=== PATIENT | male | born 1965 ===

== ENCOUNTER 2017-01-31 10:10 | Emergency (ER) | payer MEDICAID ==
[2017-01-31 10:54] VITALS: BMI 20.9
--- NOTE | 2017-01-31 10:58 | C.PDOC ---
History Of Present Illness A 51 year old male presents to the emergency room requesting Heroine and ETOH detox. Patient is currently asymptomatic and denies any fever, chest pain, shortness of breath, or any other physical complaints. REQUESTING HEROIN AND ETOH DETOX. ASYMPT EXAM NEG Time Seen by Provider: 01/31/17 10:53 Chief Complaint (Nursing): Substance Abuse History Per: Patient History/Exam Limitations: no limitations Onset/Duration Of Symptoms: Hrs Current Symptoms Are (Timing): Still Present Suicide/Self Injury Attempted (Context): None Modifying Factor(s): Alcohol, Other (Heroine) Severity: Mild Recent travel outside of the [place]: No Past Medical History Reviewed: Historical Data, Nursing Documentation, Vital Signs Vital Signs: Last Vital Signs Temp 97.8 F 01/31/17 10:54 Pulse 68 01/31/17 10:54 Resp 20 01/31/17 10:54 BP 128/81 01/31/17 10:54 Pulse Ox 100 01/31/17 10:54 - Medical History PMH: Denies: Diabetes, Hepatitis, HIV, HTN, Chronic Kidney Disease, Seizures, Sexually Transmitted Disease - [facility] Procedures DETOXIFICATION SERVICES FOR SUBSTANCE ABUSE TREATMENT (10/13/16) GROUP CLAM DREDGER FOR SUBSTANCE ABUSE TREATMENT, PSYCHOEDUCATION (10/13/16) Family History: States: Unknown Family Hx - Social History Hx Alcohol Use: Yes Hx Substance Use: Yes - Immunization History Hx Tetanus Toxoid Vaccination: Yes Hx Influenza Vaccination: Yes Hx Pneumococcal Vaccination: No Review Of Systems Except As Marked, All Systems Reviewed And Found Negative. Constitutional: Positive for: Other (ETOH and Heroine Detox). Negative for: Fever Cardiovascular: Negative for: Chest Pain Respiratory: Negative for: Shortness of Breath Physical Exam - Physical Exam Appears: Well, Non-toxic, No Acute Distress Skin: Normal Color, Warm, Dry Head: Atraumatic, Normacephalic Eye(s): bilateral: Normal Inspection Neck: Normal ROM, Supple Cardiovascular: Rhythm Regular Respiratory: Normal Breath Sounds, No Rales, No Rhonchi, No Wheezing Gastrointestinal/Abdominal: Soft, No Tenderness Extremity: Normal ROM, No Tenderness Neurological/Psych: Oriented x3, Normal Speech, Normal Cognition ED Course And Treatment - Physician Consult Information Time Consulting Physician Contacted: 11:02 Outcome Of Conversation: D/W CRISIS BRAD, NO DETOX BEDS AVAIL. ALT DETOX RESOURCES GIVEN Disposition Counseled Patient/Family Regarding: Diagnosis, Need For Followup - Disposition Referrals: Clinical Laboratory Director Service [Outside] BESSIE,DETOX [Other] Disposition: HOME/ ROUTINE Disposition Time: 10:54 Condition: GOOD Instructions: Polysubstance Abuse (ED) - Clinical Impression Clinical Impression: Polysubstance abuse - Scribe Statement The provider has reviewed the documentation as recorded by the Feleciaibblanca Rich Provider Scribe Attestation: All medical record entries made by the Feleciaibe were at my direction and personally dictated by me. I have reviewed the chart and agree that the record accurately reflects my personal performance of the history, physical exam, medical decision making, and the department course for this patient. I have also personally directed, reviewed, and agree with the discharge instructions and disposition.
[2017-01-31 11:02] VITALS: BP 128/81; PULSE 68; RESP 20; TEMP 97.8; O2SAT 100
== END 2017-01-31 11:07 | disposition home or self-care (01) ==
LOC: C.ER 10:10
DX: F19.10 Other psychoactive substance abuse, uncomplicated (principal)

== ENCOUNTER 2018-12-03 12:21 | Inpatient (IN) | payer MEDICAID ==
[2018-12-03 12:22] VITALS: BMI 20.9
[2018-12-03 16:44] LABS: BASO % 0.3 % (0.0-2.0); EOS # 0.1 K/uL (0.0-0.7); EOS % 0.6 % (0.0-4.0); LYMPH # 1.8 K/uL (1.0-4.3); LYMPH % 16.9 % (20.0-40.0); MEAN CORPUSCULAR HEMOGLOBIN 30.9 pg (27.0-31.0); MEAN CORPUSCULAR HGB CONC 33.4 g/dL (33.0-37.0); MEAN PLATELET VOLUME 9.4 fL (7.2-11.7); MONO # 1.1 K/uL (0.0-0.8); MONO % 9.6 % (0.0-10.0); NEUT # 7.9 K/uL (1.8-7.0); NEUT % 72.6 % (50.0-75.0); RBC 4.19 Mil/uL (4.40-5.90); RED CELL DISTRIBUTION WIDTH 12.8 % (11.5-14.5); WHITE BLOOD COUNT 10.9 K/uL (4.8-10.8)
[2018-12-03 16:48] LABS: MEAN CELL VOLUME 92.7 fL (80.0-94.0)
[2018-12-03 17:00] LABS: ALB/GLOB RATIO 1.3 (1.0-2.1); ALT/SGPT 24 U/L (21-72); AST/SGOT 24 U/L (17-59); CALCIUM 8.7 mg/dl (8.6-10.4); GFR NON-AFRICAN AMERICAN > 60
--- NOTE | 2018-12-03 17:13 | C.PDOC ---
History Of Present Illness 53 y/o male presents to the ER requesting detox from heroin. Patient states that he snorts heroin and his last use was in the morning today. Patient is complaining of nausea and body aches. He also states that he has mild non-productive cough which has been present for the past several days. Denies having suicidal ideation, homicidal ideation, fever, chills, vomiting, and abdominal pain. Time Seen by Provider: 12/03/18 16:21 Chief Complaint (Nursing): Substance Abuse History Per: Patient History/Exam Limitations: no limitations Onset/Duration Of Symptoms: Days Current Symptoms Are (Timing): Still Present Severity: Moderate Past Medical History Reviewed: Historical Data, Nursing Documentation, Vital Signs Vital Signs: Last Vital Signs Temp 98.0 F 12/03/18 13:31 Pulse 70 12/03/18 13:31 Resp 20 12/03/18 13:31 BP 112/70 12/03/18 13:31 Pulse Ox 97 12/03/18 13:31 - Medical History PMH: Denies: Diabetes (Patient denied.), Hepatitis (Patient denied.), HIV (Patient denied.), HTN (Patient denied.), Chronic Kidney Disease, Seizures (Patient denied.), Sexually Transmitted Disease (Patient denied.) Surgical History: No Surg Hx - [facility] Procedures DETOXIFICATION SERVICES FOR SUBSTANCE ABUSE TREATMENT (10/13/16) GROUP FOSTER CARE CASE MANAGER FOR SUBSTANCE ABUSE TREATMENT, PSYCHOEDUCATION (10/13/16) Family History: States: No Known Family Hx - Social History Hx Alcohol Use: Yes Hx Substance Use: Yes - Immunization History Hx Tetanus Toxoid Vaccination: Yes Hx Influenza Vaccination: Yes Hx Pneumococcal Vaccination: Yes Review Of Systems Except As Marked, All Systems Reviewed And Found Negative. Constitutional: Positive for: Malaise. Negative for: Fever, Chills Respiratory: Positive for: Cough Gastrointestinal: Positive for: Nausea. Negative for: Vomiting, Abdominal Pain Physical Exam - Physical Exam Appears: No Acute Distress Skin: Normal Color, Warm, Dry Head: Atraumatic, Normacephalic Eye(s): bilateral: Normal Inspection Nose: Normal Oral Mucosa: Moist Throat: Normal, No Erythema, No Exudate Neck: Supple Chest: Symmetrical Cardiovascular: Rhythm Regular Respiratory: Normal Breath Sounds, No Rales, No Rhonchi Gastrointestinal/Abdominal: Soft, No Tenderness, No Guarding, No Rebound Neurological/Psych: Oriented x3, Normal Speech ED Course And Treatment - Laboratory Results Result Diagrams: 12/03/18 16:38 12/03/18 16:38 O2 Sat by Pulse Oximetry: 97 (RA) Pulse Ox Interpretation: Normal - Other Rad CXR X-Ray: Viewed By Me, Read By Radiologist Interpretation: Accession No. : [id number]. Patient Name / ID : DAIANA MAURICIO / [id number]. Exam Date : 12/03/2018 17:26:44 ( Approved ). Study Comment : Sex / Age : M / 53Y. Creator : Tim Cruz MD. Dictator : Tim Colón MD. Personnel Consultant : Computer Installation Engineer : Tim Cruz MD. Approver2 : Report Date : 12/03/2018 18:23:01. My Comment : . Date of service: 12/03/2018. HISTORY: COUGH, MEDICAL CLEARANCE. COMPARISON: No prior. TECHNIQUE: Chest PA and lateral. FINDINGS: LUNGS: No active pulmonary disease. Multiple small less than 5 mm calcified granulomas. PLEURA: No significant pleural effusion identified. No pneumothorax apparent. CARDIOVASCULAR: No aortic atherosclerotic calcification present. Normal cardiac size. No pulmonary vascular congestion. OSSEOUS STRUCTURES: No significant abnormalities. VISUALIZED UPPER ABDOMEN: Normal. OTHER FINDINGS: None. IMPRESSION: No active disease. Progress Note: Blood work, UA, UDS, CXR ordered and reviewed. Patient given PO Zofran and Motrin. UA shows + leuk and WBCS, however patient denies dysuria/hematuira, penile dishcarge, etc. Do not recommend antibiotics. 6:00pm- Patient medically cleared. Patient accepted Dr. Higgins for opiate detox admission. Disposition - Disposition - Scribe Statement The provider has reviewed the documentation as recorded by the Scribe Corrine Rice Provider Attestation: All medical record entries made by the Scribe were at my direction and personally dictated by me. I have reviewed the chart and agree that the record accurately reflects my personal performance of the history, physical exam, medical decision making, and the department course for this patient. I have also personally directed, reviewed, and agree with the discharge instructions and disposition.
[2018-12-03 17:14] LABS: SQUAMOUS EPITHIAL < 1 /hpf (0-5); URINE BACTERIA FEW (<OCC); URINE BILIRUBIN NEGATIVE (NEGATIVE); URINE BLOOD 1+ (NEGATIVE); URINE CLARITY Hazy (Clear); URINE COLOR Yellow (YELLOW); URINE GLUCOSE (UA) NORMAL (Normal); URINE LEUKOCYTE ESTERASE 3+ Leu/uL (Negative); URINE PROTEIN NEGATIVE (NEGATIVE)
[2018-12-03 17:14] LABS: BLOOD UREA NITROGEN 12 mg/dL (9-20)
[2018-12-03 17:25] LABS: BARBITURATES, UR NEGATIVE (NEGATIVE); BENZODIAZEPINES, UR NEGATIVE (NEGATIVE); PHENCYCLIDINE, UR NEGATIVE (NEGATIVE)
[2018-12-03 17:28] LABS: OPIATES, UR POSITIVE (NEGATIVE)
--- NOTE | 2018-12-03 18:26 | RAD ---
Date of service: 12/03/2018 HISTORY: COUGH, MEDICAL CLEARANCE COMPARISON: No prior. TECHNIQUE: Chest PA and lateral FINDINGS: LUNGS: No active pulmonary disease. Multiple small less than 5 mm calcified granulomas. PLEURA: No significant pleural effusion identified. No pneumothorax apparent. CARDIOVASCULAR: No aortic atherosclerotic calcification present. Normal cardiac size. No pulmonary vascular congestion. OSSEOUS STRUCTURES: No significant abnormalities. VISUALIZED UPPER ABDOMEN: Normal. OTHER FINDINGS: None. IMPRESSION: No active disease.
--- NOTE | 2018-12-03 18:33 | PCM.BM ---
<Leyla Esquivel - Last Filed: 12/03/18 18:31> Treatment Plan Problems - Problems identified on initial assessmt denial Date Initiated: 12/03/18 Time Initiated: 18:31 Assessment reference: NA Status: Active low modivation Date Initiated: 12/03/18 Time Initiated: 18:33 Assessment reference: NA Status: Active defensive coping Date Initiated: 12/03/18 Time Initiated: 18:33 Assessment reference: NA Status: Active Treatment assets and liabiliti Patient Assests: ADL independent, physically healthy, good support system, cognitively intact Patient Liabilities: substance abuse - Milieu Protocol Maintain good personal hygiene: daily Encourage regular showers, daily Remind patient to perform daily oral care, daily Assist patient to perform ADL's Maintain personal safety: every shift Educate patient to report safety concerns to staff, every shift Monitor environment for contraband/sharps Medication safety: Monitor for expected outcome, potential side effects: every shift, Assess barriers to learning: every shift, Assess readiness for medication education: every shift <Enma Hand - Last Filed: 12/05/18 11:49> Family Contact Family involvement: Famliy/SO not involved - Goals for Treatment Patient goals for treatment: Complete detox and apply for long-term inpatient rehab. Discharge/Continuing Care - Education Needs Education Needs: Patient Medication, Patient Diagnosis/Disease Process, Patient Coping Skills, Patient Anger Management skills, Patient Placement options, Patient Community resources - Discharge Discharge Criteria: Ability to care for self, No longer exhibiting s/s of withdrawal, Reduction of target symptoms Discharge to:: Substance Abuse Rehab - Treatment Team Participation Patient/Family/SO Statement: 12/05/18 11:50 "I'd like to try the [employer]." Discussed with Family/SO: No Was Patient/Family/SO present at Treatment Team Meeting: Yes <Jad Higgins - Last Filed: 12/09/18 17:29> - Diagnosis (1) Opiate dependence Status: Acute Interventions: 12/04/18 17:28 * Assess 7x/week regarding severity of withdrawal * Educate regarding risks, benefits, side effects and alternatives of medications * Use Motivational Interviewing for abstinence * Use CBT for relapse prevention * Medication management for withdrawal symptoms * Encourage medication assisted treatment *
[2018-12-03] MEDS ORDERED: Buprenorphine Hydrochloride 2 mg SL ONE ×2 (19:12→20:12)
[2018-12-03] MEDS ORDERED: Aluminum Hydroxide/Magnesium Hydroxide Susp (30 mL) PO PRN (23:59)
[2018-12-04] MEDS: Buprenorphine Hydrochloride 2 mg SL SCH (09:57)
[2018-12-04] MEDS ORDERED: Benzocaine/Menthol (Cepacol) Lozenge MT PRN (10:19)
--- NOTE | 2018-12-04 12:40 | PCM.PSYCH ---
Initial Psychiatric Evaluation - Initial Psychiatric Evaluation Type of Admission: Voluntary Legal Status: Capacity Chief Complaint (in patient's own words): "I want to stop doing heroin for my family" History of Present Illness and Precipitating Events: Patient is a 53-year-old, male who is single, unemployed, lives with his mom, and has 4 children, all adults. He presents to [facility] ER requesting opioid detox. Patient states that he is tired of doing drugs and wants to be clean. He reports that his brother from an overdose 6 months ago which put him in a bad place mentally but made him realize he has to quit for his family. He admits to using 8-10 bags of heroin, intranasally, for the past 9 months. He has been using heroin since he was 29 years old with his longest sobriety being 4 years that he attributes to being busy working. This is his fourth time in detox (twice to [facility], second time to [facility]). He denies ever going to rehab or taking any maintenance drugs. Patient denies taking pills, drinking alcohol, using cocaine, smoking marijuana. Patient states that the reason why he gets high is because he feels bored. He denies any suicidal or homicidal ideation, hallucinations, and paranoia. Past Psychiatric History: depression, anxiety. Admitted to inpatient psych when 11 years old for being emotionally disturbed. Familial Psych History: brother from heroin overdose 6 months ago. Grandmother and father were alcoholics. PMHx/PSHx: none Meds: none Current Medications: Active Medications Generic Name Dose Route Start Last Admin Trade Name Freq PRN Reason Stop Dose Admin Al Hydrox/Mg Hydrox/Simethicone 30 ml 12/03/18 23:59 Maalox 30 Ml PO TID PRN Indigestion / Heartburn Benzocaine/Menthol 1 margarita 12/04/18 10:19 Cepacol Sore Throat MT Q4H PRN Sore Throat Buprenorphine HCl 8 mg 12/04/18 10:00 12/04/18 09:57 Subutex SL 12/08/18 09:59 8 mg DAILY ILIANA Administration Taper Clonidine HCl 0.1 mg 12/03/18 23:58 Catapres PO Q4 PRN COWS Score More or Equal to 5 Dicyclomine HCl 10 mg 12/04/18 00:00 Bentyl PO Q6H PRN spasms Guaifenesin 200 mg 12/04/18 10:19 Robitussin PO Q4H PRN Cough and congestion Hydroxyzine HCl 50 mg 12/04/18 00:00 Atarax PO Q6H PRN Anxiety Ibuprofen 600 mg 12/04/18 00:00 Motrin Tab PO Q6H PRN Pain, moderate (4-7) Loperamide HCl 2 mg 12/03/18 23:59 Imodium PO Q8 PRN Diarrhea Ondansetron HCl 4 mg 12/03/18 23:59 Zofran Tab PO Q8 PRN Nausea/Vomiting Trazodone HCl 50 mg 12/03/18 20:39 12/03/18 22:07 Desyrel PO 50 mg HS PRN Administration insomnia Past Psychiatric History - Past Psychiatric History Previous Treatment History: Intensive Outpatient Pertinent Medical Hx (Current Medical&Sleep Prob, Allergies): Allergies Allergy/AdvReac Type Severity Reaction Status Date / Time No Known Allergies Allergy Verified 12/03/18 13:32 No Known Home Med 10/13/16 Review of Systems - Psychiatric Psychiatric: Abnormal Sleep Pattern, Anxiety, Behavioral Changes, Difficulty Concentrating. absent: Hallucinations, Homicidal Ideation, Suicidal Ideation, Visual Hallucinations Mental Status Examination - Personal Presentation Personal Presentation: Looks stated age - Affect Affect: Broad - Motor Activity Motor Activity: Calm - Reliability in Providing Information Reliability in Providing Information: Good - Speech Speech: Organized - Mood Mood: Neutral - Formal Thought Process Formal Thought Process: No Impairment - Obsessions/Compulsions Obsessions: No Compulsions: No - Cognitive Functions Orientation: Person, Place, Situation, Time Sensorium: Alert Attention/Concentration: Attentive Abstract Thinking: [place] Estimate of Intelligence: Average Judgement: Intact, as evidence by: Insight regarding need for hospitalization Memory: Recent intact, as evidence by: Ability to recall events of the day, Remote intact, as evidenced by: Ability to recall historical events - Risk Risk: Withdrawal, Diminished functioning - Strength & Assets Inventory Strength & Assets Inventory: Family support, Employment history, Cooperative - Limitations Limitations: Other DSM 5 DX - DSM 5 DSM 5 Diagnosis: Opioid withdrawal opioid use disorder- severe Depressive d/o - unspecified - Recommended/Plan of Treatment Treatment Recommendations and Plan of Treatment: Taper with subutex Remeron for depressive sxs and insomnia Gabapentin for augmentation if needed As needed medications All risks, benefits and alternatives of the meds discussed, and the pt agreed and understood. Attend groups and activities Supportive therapy and psychoeducation [facility] for abstinence CBT for relapse prevention Encourage MAT Refer to rehab or IOP, and self-help groups Teach healthy lifestyle methods, i.e. diet, exercise, meditation Smoking cessation with [facility] Nicotine patch if needed 33 min Projected ELOS: 4-5 days Prognosis: good with treatment - Smoking Cessation Smoking Cessation Initiated: Yes
[2018-12-05] MEDS: guaiFENesin 200 mg/10 ml Syrup UD PO PRN (09:26)
[2018-12-05] MEDS: Buprenorphine Hydrochloride 2 mg SL SCH (09:27)
--- NOTE | 2018-12-05 13:45 | PCM.PYCHPN ---
Psychiatric Progress Note - Psychiatric Progress Note Patient seen today, length of contact: 16 min Patient Chief Complaint: "Not well" Problems Identified/Issues Discussed: The pt is seen, chart reviewed, case is discussed with staff. The pt is compliant with medications and reports no side-effects. Symptoms are improving but needs more time to stabilize and to avoid relapse. Pt attends groups and activities. Support given, psycho-education provided. After care discussed. Medication Change: Yes (detox changes daily) Medical Record Reviewed: Yes Mental Status Examination - Cognitive Function Orientation: Person, Place, Situation, Time Memory: Intact Attention: WNL Concentration: Poor Association: WNL Fund of Knowledge: WNL - Mood Mood: Neutral - Affect Affect: Broad - Speech Speech: Appropriate - Formal Thought Process Formal Thought Process: No Impairment - Suicidal Ideation Suicidal Ideation: No - Homicidal Ideation Homicidal Ideation: No Goal/Treatment Plan - Goal/Treatment Plan Need for Continued Stay: Discharge may exacerbated symptoms, Severe functional impairment Progress Toward Problem(s) and Goals/Treatment Plan: Taper with subutex Remeron for depressive sxs and insomnia Gabapentin for augmentation if needed As needed medications All risks, benefits and alternatives of the meds discussed, and the pt agreed and understood. Attend groups and activities Supportive therapy and psychoeducation [place] for abstinence CBT for relapse prevention Encourage MAT Refer to rehab or IOP, and self-help groups Teach healthy lifestyle methods, i.e. diet, exercise, meditation Smoking cessation with [place] Nicotine patch if needed
[2018-12-06 06:29] VITALS: RESP 18
[2018-12-06] MEDS: guaiFENesin 200 mg/10 ml Syrup UD PO PRN (09:17)
[2018-12-06] MEDS: Buprenorphine Hydrochloride 2 mg SL SCH (09:17)
--- NOTE | 2018-12-06 11:51 | PCM.PYCHPN ---
Psychiatric Progress Note - Psychiatric Progress Note Patient seen today, length of contact: 17 min Patient Chief Complaint: " i have a headache" Problems Identified/Issues Discussed: The pt is seen, chart reviewed, case discussed with staff. Patient complains of a headache and more bone aches. Support and psychoeducation given, CBT and ND used briefly No new symptoms reported, improving slowly and needs more time No SEs from medications, risks discussed. After care discussed Medication Change: Yes (detox changes daily) Medical Record Reviewed: Yes Mental Status Examination - Cognitive Function Orientation: Person, Place, Situation, Time Memory: Intact Attention: Poor Concentration: Poor Association: WNL Fund of Knowledge: WNL - Mood Mood: Anxious - Affect Affect: Constricted - Speech Speech: Soft - Formal Thought Process Formal Thought Process: No Impairment - Suicidal Ideation Suicidal Ideation: No - Homicidal Ideation Homicidal Ideation: No Goal/Treatment Plan - Goal/Treatment Plan Need for Continued Stay: Discharge may exacerbated symptoms, Severe functional impairment Progress Toward Problem(s) and Goals/Treatment Plan: Taper with subutex continues Remeron for depressive sxs and insomnia Gabapentin for augmentation if needed As needed medications All risks, benefits and alternatives of the meds discussed, and the pt agreed and understood. Attend groups and activities Supportive therapy and psychoeducation [place] for abstinence CBT for relapse prevention Encourage MAT Refer to rehab or IOP, and self-help groups Teach healthy lifestyle methods, i.e. diet, exercise, meditation Smoking cessation with ND Nicotine patch if needed - Smoking Cessation Smoking Cessation Initiated: Yes
--- NOTE | 2018-12-07 07:56 | PCM.PYCHDC ---
Mental Status Examination - Mental Status Examination Orientation: Person, Place, Situation, Time Memory: Intact Mood: Anxious Affect: Constricted Speech: Appropriate Attention: WNL Concentration: WNL Association: WNL Fund of Knowledge: WNL Formal Thought Process: No Impairment Suicidal Ideation: No Current Homicidal Ideation?: No Discharge Summary - Discharge Note Reason for Hospitalization: Opioid detox Consultations:: List each consultation separately and include: 1. Reason for request. 2. Findings. 3. Follow-up Summary of Hospital Course include:: 1. Description of specific treatment plan utilized for patients during their course of treatmen. 2. Summarize the time- course for resolution of acute symptoms and/or regressed behaviors. 3. Describe issues identified and worked on during hospitalization. 4. Describe medication utilized. 5. Describe medical problems identified and treated. 6. Reassessment of suicide risk Summary of Hospital Course: On admission: Patient is a 53-year-old, male who is single, unemployed, lives with his mom, and has 4 children, all adults. He presents to [facility] ER requesting opioid detox. Patient states that he is tired of doing drugs and wants to be clean. He reports that his brother from an overdose 6 months ago which put him in a bad place mentally but made him realize he has to quit for his family. He admits to using 8-10 bags of heroin, intranasally, for the past 9 months. He has been using heroin since he was 29 years old with his longest sobriety being 4 years that he attributes to being busy working. This is his fourth time in detox (twice to [facility], second time to [facility]). He denies ever going to rehab or taking any maintenance drugs. Patient denies taking pills, drinking alcohol, using cocaine, smoking marijuana. Patient states that the reason why he gets high is because he feels bored. He denies any suicidal or homicidal ideation, hallucinations, and paranoia. Past Psychiatric History: depression, anxiety. Admitted to inpatient psych when 11 years old for being emotionally disturbed. Familial Psych History: brother from heroin overdose 6 months ago. Grandmother and father were alcoholics. PMHx/PSHx: none Meds: none Hospital course: The pt was admitted and started on treatment with psychotherapy, support, psychoeducation and medications. All the risks and benefits of medications are discussed and the patient understood and agreed. MA and CBT used. The pt attended groups and activities, as well as milieu therapy. The pt improved with the treatments provided. After care discussed with the patient. Pt went to [facility] in . - Final Diagnosis (DSM 5) Condition upon Discharge: GOOD DSM 5: Opioid withdrawal Opioid use disorder- severe Depressive d/o - unspecified Disposition: REHAB FACILITY/REHAB UNIT Follow-up Treatment Plan: Continue below medications after discharge. Follow after care plan as discussed. Use relapse prevention skills Return to ER or call 911 if suicidal, homicidal or symptoms relapse. Stay away from stress, alcohol and drugs. See primary doctor regularly and get labs. Prescriptions/Medication Reconciliation: Mirtazapine [Remeron] 15 mg PO HS #30 tab traZODone [Desyrel] 50 mg PO HS PRN #30 tab PRN Reason: insomnia
[2018-12-07 08:20] VITALS: BP 104/68; PULSE 68; TEMP 97.4; O2SAT 99
[2018-12-07] MEDS: Buprenorphine Hydrochloride 2 mg SL SCH (09:32)
== END 2018-12-07 09:45 | disposition home or self-care (01) | DRG 773 ==
LOC: C.ER 12:21 → C.7D 18:08
PROVIDERS: ADMIT Psychiatry & Neurology Psychiatry; ATTEND Psychiatry & Neurology Psychiatry
PROC: GZHZZZZ Group Psychotherapy (ICD-10-PCS; principal; 2018-12-03)
PROC: GZ56ZZZ Individual Psychotherapy, Supportive (ICD-10-PCS; 2018-12-03)
DX: F11.23 Opioid dependence with withdrawal (principal); F32.9 Major depressive disorder, single episode, unspecified; F17.200 Nicotine dependence, unspecified, uncomplicated; G47.00 Insomnia, unspecified